=== PATIENT | female | born 2000 | race Hispanic/Latino ===

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

== ENCOUNTER 2022-11-04 03:43 | Emergency (ER) | payer OTHER, SELFPAY ==
[2022-11-04] MEDS ORDERED: LIDOCAINE 1% 20 ML MDV ONE (04:21)
--- NOTE | 2022-11-04 05:21 | ER ---
Nurse's Notes [facility] Name: Bay Reeder Age: 22 yrs Sex: Female : 2000 Arrival Date: 11/04/2022 Time: 03:43 Bed 19 Private MD: Diagnosis: Direct infection of left hand in infectious and parasitic diseases classified elsewhere Presentation: 11/04 03:54 Chief complaint: Patient states: My left thumb started swelling Abhishek morning. I did kd3 not injure it and I don't think I was bit by anything. i think it is getting worse. Coronavirus screen: Vaccine status: Patient reports receiving the 2nd dose of the covid vaccine. Ebola Screen: No symptoms or risks identified at this time. Initial Sepsis Screen: Does the patient meet any 2 criteria? No. Patient's initial sepsis screen is negative. Does the patient have a suspected source of infection? No. Patient's initial sepsis screen is negative. Risk Assessment: Do you want to hurt yourself or someone else? Patient reports no desire to harm self or others. Onset of symptoms was November 04, 2022. 03:54 Method Of Arrival: Ambulatory kd3 03:54 Acuity: KHANH 4 kd3 Triage Assessment: 03:54 General: Appears in no apparent distress. Behavior is calm, cooperative. 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 - Social history:: Smoking status: Patient denies any tobacco usage or history of. Screenin:57 [facility] [place] ED Fall Risk Assessment (Adult) History of falling in the last 3 months, sg5 including since admission No falls in past 3 months (0 pts). Abuse screen: Denies threats or abuse. Nutritional screening: No deficits noted. Tuberculosis screening: No symptoms or risk factors identified. Assessment: 03:56 General: Appears in no apparent distress. comfortable, Behavior is calm, cooperative, sg5 appropriate for age. Pain: Complains of pain in left thumb. Neuro: Level of Consciousness is awake, alert, obeys commands, Oriented to person, place, time, situation, Appropriate for age. Cardiovascular: Capillary refill < 3 seconds. Respiratory: Airway is patent Respiratory effort is even, unlabored. GI: Abdomen is flat, non-distended. : No deficits noted. No signs and/or symptoms were reported regarding the genitourinary system. EENT: No deficits noted. No signs and/or symptoms were reported regarding the EENT system. Derm: left thumb inflammation/swelling redness. Musculoskeletal: No deficits noted. No signs and/or symptoms reported regarding the musculoskeletal system. 05:27 Reassessment: Patient and/or family updated on plan of care and expected duration. Pain sg5 level reassessed. Patient is alert, oriented x 3, equal unlabored respirations, skin warm/dry/pink. Patient states symptoms have improved. Vital Signs: 03:54 BP 118 / 72; Pulse 86; Resp 15; Temp 98.1(O); Pulse Ox 100% on R/A; Weight 50.8 kg; kd3 Height 5 ft. 4 in. ; 03:58 BP 118 / 72; Pulse 86; Resp 18; Pulse Ox 100% on R/A; Pain 4/10; sg5 04:25 BP 116 / 63; Pulse 88; Resp 16; Pulse Ox 100% on R/A; sg5 05:27 BP 100 / 62; Pulse 70; Resp 16; Pulse Ox 100% on R/A; sg5 03:54 Body Mass Index 19.22 (50.80 kg, 162.56 cm) kd3 03:58 Pain Scale: Adult sg5 ED Course: 03:47 Patient arrived in ED. jj6 03:51 Troy Ji MD is Attending Physician. bs3 03:53 Ly Salinas, MICHAEL is Primary Nurse. sg5 03:54 Arm band placed on right wrist. kd3 03:57 Patient has correct armband on for positive identification. Bed in low position. Call sg5 light in reach. Adult w/ patient. Valuables Left with patient. 04:01 Triage completed. kd3 04:28 Finger-Thumb LEFT XRAY In Process Unspecified. EDMS 05:20 Sinan Armijo MD is Referral Physician. bs3 05:35 No provider procedures requiring assistance completed. Patient did not have IV access sg5 during this emergency room visit. Administered Medications: 05:26 Drug: Lidocaine Infiltration (1 %) 20 mg {Note: administered by provider.} Volume: 20 sg5 ml; Route: Infiltration; Medication: 05:35 VIS not applicable for this client. sg5 Outcome: 05:20 Discharge ordered by . bs3 05:35 Discharged to home with significant other. sg5 05:35 Condition: good 05:35 Discharge instructions given to patient, Instructed on discharge instructions, follow up and referral plans. 05:36 Patient left the ED. sg5 Signatures: Dispatcher [employer] EDMS Arcelia Gonzalez jj6 Nelsy Cornelius, RN RN kd3 Troy Ji MD MD bs3 Ly Salinas RN RN sg5
--- NOTE | 2022-11-04 05:21 | EDPHYS ---
Physician Documentation [facility] Name: Bay Reeder Age: 22 yrs Sex: Female : 2000 Arrival Date: 11/04/2022 Time: 03:43 Bed 19 Private MD: ED Physician Troy Ji HPI: 11/04 03:57 This 22 yrs old Female presents to ER via Unassigned with complaints of THUMB bs3 SWELLING/SORENESS. 03:57 pt notes that she developed swelling of her left thumb, denies trauma/fb, denies fever, bs3 chills, or anything else bothering her she did develop some bumps around the area as well. Never had this before, she has mild achy pain, nothing makes it better or worse. . 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 - Social history:: Smoking status: Patient denies any tobacco usage or history of. ROS: 03:57 Constitutional: Negative for fever, chills bs3 03:57 All other systems are negative. Exam: 04:11 Constitutional: This is a well developed, well nourished patient who is awake, alert, bs3 and in no acute distress. Head/Face: Normocephalic, atraumatic. Eyes: Pupils equal round and reactive to light, extra-ocular motions intact. Lids and lashes normal. ENT: mmm, no posterior phyarngeal erythema Neck: Trachea midline, no thyromegaly, no neck stiffness MS/ Extremity: her left thumb pad is tender and swollen, she has an area in the middle which is concerning for where she thinks she may have had a fb Neuro: Awake and alert, GCS 15, oriented to person, place, time, and situation. Cranial nerves II-XII grossly intact. Motor strength 5/5 in all extremities. Sensory grossly intact. Psych: Awake, alert, with orientation to person, place and time. Behavior, mood, and affect are within normal limits. Vital Signs: 03:54 BP 118 / 72; Pulse 86; Resp 15; Temp 98.1(O); Pulse Ox 100% on R/A; Weight 50.8 kg; kd3 Height 5 ft. 4 in. ; 03:58 BP 118 / 72; Pulse 86; Resp 18; Pulse Ox 100% on R/A; Pain 4/10; sg5 04:25 BP 116 / 63; Pulse 88; Resp 16; Pulse Ox 100% on R/A; sg5 05:27 BP 100 / 62; Pulse 70; Resp 16; Pulse Ox 100% on R/A; sg5 03:54 Body Mass Index 19.22 (50.80 kg, 162.56 cm) kd3 03:58 Pain Scale: Adult sg5 Procedures: 05:18 I \T\ D: Incision and drainage was performed for an abscess of the left left hand Prepped bs3 with chlorhexadine. Anesthetized with 4 ml's 1% Lidocaine. Incised with #11 blade. Drained small amount bloody fluid. Abscess cavity explored. an incision parallel to the bone was made on the distal first digit phalynx and septations were broken up, there was no sig purulent discharge expelled, the incision was 1cm, started 5mm from the dip extending distally. A xeroform was applied. . MDM: 03:47 Patient medically screened. bs3 04:11 Data reviewed: vital signs, nurses notes. ED course: pt with likely fingertip bs3 infection, I considered herpetic elia, but her hx/pe are more consistent on further clarification with a felon, she notes on Saturday thinking she got stuck by something at work and then tried to dig/remove it, we discussed the risks and benefits of incision of the finger pulp if this is a felon and patient aggreable and believed this was more likely, there was a small lesion which I was concerned was developing herpes lesion but she notes that she picks her nails and she removed a scab. 11/04 04:06 Order name: Finger-Thumb LEFT XRAY bs3 Administered Medications: 05:26 Drug: Lidocaine Infiltration (1 %) 20 mg {Note: administered by provider.} Volume: 20 sg5 ml; Route: Infiltration; Disposition Summary: 11/04/22 05:20 Discharge Ordered Location: Home bs3 Problem: new bs3 Symptoms: have improved bs3 Condition: Stable bs3 Diagnosis - Direct infection of left hand in infectious and parasitic diseases classified bs3 elsewhere Followup: bs3 - With: Sinan Armijo MD - When: 2 - 3 days - Reason: Re-evaluation by your physician Discharge Instructions: - Discharge Summary Sheet bs3 - Felon bs3 Forms: - Medication Reconciliation Form bs3 - Thank You Letter bs3 - Antibiotic Education bs3 - Prescription Opioid Use bs3 Prescriptions: - Clindamycin HCl 150 mg Oral Capsule - take 3 capsule by ORAL route every 6 hours for 7 days; 84 capsule; Refills: 0, bs3 Product Selection Permitted Signatures: Dispatcher [employer] EDTroy Castro MD MD bs3 Ly Salinas RN RN sg5 Corrections: (The following items were deleted from the chart) 04:12 03:57 Constitutional: This is a well developed, well nourished patient who is awake, bs3 alert, and in no acute distress. Head/Face: Normocephalic, atraumatic. MS/ Extremity: her left thumb has small circular lesions developing which may be the developement of a herpetic elia. She did not have real trauma to indicate a felon/fb. Given the symptoms, will cover with antibiotics and topical antiviral, advised return prec and f/u with hand. Neuro: Awake and alert, GCS 15, oriented to person, place, time, and situation. Cranial nerves II-XII grossly intact. Motor strength 5/5 in all extremities. Sensory grossly intact. Psych: Awake, alert, with orientation to person, place and time. Behavior, mood, and affect are within normal limits. bs3
[2022-11-04 05:41] VITALS: TEMP 98.1; O2SAT 100
[2022-11-04 05:45] VITALS: BP 100/62
--- NOTE | 2022-11-05 12:11 | RAD REPORT ---
EXAM DESCRIPTION: RAD - Finger-Thumb Left - 11/04/2022 4:26 am CLINICAL HISTORY: PAIN COMPARISON: No comparisons FINDINGS: Moderate soft tissue swelling affects the first digit. No fracture or radiopaque foreign b govind.
== END 2022-11-04 05:36 | disposition home or self-care (01) ==
LOC: ER 03:43
PROC: 0H9GXZZ Drainage of Left Hand Skin, External Approach (ICD-10-PCS; principal; 2022-11-04)
DX: L02.512 Cutaneous abscess of left hand (principal); M01.X42 Direct infection of left hand in infectious and parasitic diseases classified elsewhere
CPT/HCPCS: J2001

== ENCOUNTER 2023-10-26 17:56 | Emergency (ER) | payer BC, SELFPAY ==
[2023-10-26] MEDS ORDERED: AMOX/K CLAV 875 MG TAB ONE (18:14)
--- NOTE | 2023-10-26 18:15 | EDPHYS ---
Physician Documentation [facility] Name[facility] Age: 23 yrs Sex: Female : 2000 Arrival Date: 10/26/2023 Time: 17:56 Bed IW1 Private MD: ED Physician Demian Voss HPI: 10/25 18:18 This 23 yrs old Female presents to ER via Ambulatory with complaints of Ear ec2 Pain. 18:18 Patient arrives today for evaluation of right ear pain. Patient reports that several ec2 days ago she had been scratching the inner portion of her ear and subsequently suffered an abrasion, is not having worsening pain as well as decreased hearing from the right ear. Patient reports no fevers or chills, no nausea or vomiting, no other concerns.. 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 - Infectious Disease History:: Denies. - Social history:: Smoking status: Patient denies any tobacco usage or history of. ROS: 18:18 Constitutional: as per hpi ec2 Exam: 18:18 Constitutional: GEN: NAD Head: atraumatic Eyes: EOMI Ears: External ears are normal., ec2 Right ear with erythema noted within the ear canal along with abrasion, dried crusting noted. CV: regular rate LUNGS: no respiratory distress ABD: non-distended SKIN: no evidence of rashes MSK: no evidence of trauma NEURO: moves all extremities equally Vital Signs: 18:08 BP 118 / 83; Pulse 88; Resp 16; Temp 97.5; Pulse Ox 99% ; Height 5 ft. 4 in. ; Pain ll1 10/10; 18:08 Pain Scale: Adult ll1 MDM: 18:08 Patient medically screened. ec2 18:18 Data reviewed: vital signs. ED course: Patient arrives today for evaluation of a right ec2 ear injury. Examination remarkable for ear findings as above. Will start patient on Augmentin and topical ointment. Presents consistent with otitis externa, possible concurrent otitis media. Patient discharged home. Return precautions given.. Administered Medications: 18:14 CANCELLED (Physician Discretion): amoxicillin-[id number] mg PO once ec2 18:21 Drug: Amoxicillin PO 875 mg PO once Route: PO; ll1 18:22 Follow up: Response: No adverse reaction ll1 Disposition Summary: 10/26/23 18:14 Discharge Ordered Notes: Location: Home ec2 Condition: Stable ec2 Diagnosis - Acute serous otitis media, right ear ec2 - Other otitis externa, right ear ec2 Followup: ec2 - With: Private Physician - When: - Reason: Re-evaluation by your physician Discharge Instructions: - Discharge Summary Sheet ec2 - Otitis Externa, [id number] ec2 Forms: - Medication Reconciliation Form ec2 - Antibiotic Education ec2 - Prescription Opioid Use ec2 - Patient Portal Instructions ec2 - Leadership Thank You Letter ec2 Prescriptions: - ofloxacin 0.3 % Otic drops - instill 5 drop OTIC route daily for 5 days; 25 drop; Refills: 0, Product ec2 Selection Permitted - Augmentin 875-125 mg Oral tablet - take 1 tablet ORAL route every 12 hours for 7 days; 14 tablet; Refills: 0, ec2 Product Selection Permitted Signatures: Victorina Olmos RN RN ll1 Demian Voss MD MD ec2 Corrections: (The following items were deleted from the chart) 18:08 18:07 PMHx: Kidney stone; ll1 ll1 18:08 18:07 PMHx: None; ll1 ll1 18:14 18:13 Amoxicillin-Clavulanate PO 500 mg PO once ordered. ec2 ec2
--- NOTE | 2023-10-26 18:15 | ER ---
Nurse's Notes [facility] Name: Bay Reeder Age: 23 yrs Sex: Female : 2000 Arrival Date: 10/26/2023 Time: 17:56 Bed IW1 Private MD: Diagnosis: Acute serous otitis media, right ear;Other otitis externa, right ear Presentation: 10/25 18:08 Chief complaint: Patient states: R ear pain since Saturday. Hearing loss started today. ll1 No known fever. 4 months G2, P1. LMP 07/15. Coronavirus screen: Client denies travel out of the [place] in the last 14 days. At this time, the client does not indicate any symptoms associated with coronavirus-19. Ebola Screen: Patient denies travel to an Ebola-affected area in the 21 days before illness onset. Initial Sepsis Screen: Does the patient meet any 2 criteria? No. Patient's initial sepsis screen is negative. Does the patient have a suspected source of infection? No. Patient's initial sepsis screen is negative. Risk Assessment: Do you want to hurt yourself or someone else? Patient reports no desire to harm self or others. Onset of symptoms was October 22, 2023. 18:08 Method Of Arrival: Ambulatory ll1 18:08 Acuity: KHANH 4 ll1 Triage Assessment: 18:10 General: Appears uncomfortable, Behavior is calm, cooperative, appropriate for age. ll1 Pain: Complains of pain in right ear Quality of pain is described as aching. EENT: Reports decreased hearing in right ear pain in right ear. 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 - Infectious Disease History:: Denies. - Social history:: Smoking status: Patient denies any tobacco usage or history of. Screenin:11 [facility] ED Fall Risk Assessment (Adult) History of falling in the last 3 months, ll1 including since admission No falls in past 3 months (0 pts) Confusion or Disorientation No (0 pts) Intoxicated or Sedated No (0 pts) Impaired Gait No (0 pts) Mobility Assist Device Used No (0 pt) Altered Elimination No (0 pt) Score/Fall Risk Level 0 - 2 = Low Risk Maintained a safe environment, Hourly rounding (assess needs \T\ fall precautionary measures) done. Abuse screen: Denies threats or abuse. Nutritional screening: No deficits noted. Tuberculosis screening: No symptoms or risk factors identified. Vital Signs: 18:08 BP 118 / 83; Pulse 88; Resp 16; Temp 97.5; Pulse Ox 99% ; Height 5 ft. 4 in. ; Pain ll1 10/10; 18:08 Pain Scale: Adult ll1 ED Course: 17:58 Patient arrived in ED. mg5 17:58 Yasmeen Infante PA-C is PHCP. sb4 17:58 Demian Voss MD is Attending Physician. sb4 18:07 Arm band placed on. ll1 18:10 Triage completed. ll1 18:11 Patient has correct armband on for positive identification. Call light in reach. ll1 Provided Education on: Finish all prescribed antibiotics. 18:11 No provider procedures requiring assistance completed. Patient did not have IV access ll1 during this emergency room visit. 18:21 Victorina Olmos RN is Primary Nurse. ll1 Administered Medications: 18:14 CANCELLED (Physician Discretion): amoxicillin-[id number] mg PO once ec2 18:21 Drug: Amoxicillin PO 875 mg PO once Route: PO; ll1 18:22 Follow up: Response: No adverse reaction 1 Medication: 18:11 VIS not applicable for this client. ll1 Outcome: 18:14 Discharge ordered by . ec2 18:21 Discharged to home ambulatory, ll1 18:21 Condition: stable 18:21 Discharge instructions given to patient, Instructed on discharge instructions, follow up and referral plans. medication usage, Demonstrated understanding of instructions, follow-up care, medications, Prescriptions given X 2, 18:22 Patient left the ED. ll1 Signatures: Victorina Olmos RN RN ll1 Yasmeen Infante PA-C PA-C 4 [place] Clarisa mg5 Demian Voss MD MD ec2 Corrections: (The following items were deleted from the chart) 18:08 18:07 PMHx: Kidney stone; ll1 ll1 18:08 18:07 PMHx: None; ll1 ll1
[2023-10-26 18:34] VITALS: BP 118/83; TEMP 97.5; O2SAT 99
== END 2023-10-26 18:22 | disposition home or self-care (01) ==
LOC: ER 17:56
DX: O99.891 Other specified diseases and conditions complicating pregnancy (principal); H65.01 Acute serous otitis media, right ear; H60.8X1 Other otitis externa, right ear; Z3A.14 14 weeks gestation of pregnancy
CPT/HCPCS: 99283